=== PATIENT | male | born 1995 | race Caucasian/White ===

== ENCOUNTER 2017-06-30 22:27 | Emergency (ER) | payer OTHER ==
[2017-06-30 22:56] VITALS: BP 123/83; PULSE 75; TEMP 98.5; BMI 23.7
--- NOTE | 2017-06-30 23:56 | PDOC ---
History of Present Illness <Caprice Guo - Last Filed: 07/01/17 01:15> - General History Source: Patient Exam Limitations: No Limitations - History of Present Illness Initial Comments: 07/01/17 01:26 The patient is a 22-year-old male, with a significant past medical history of asthma and migraines, who presents to the ED with a migraine today. The patient states that he smelled gas while at home and was concerned if he had carbon monoxide poisoning. While at home, the patient developed a throbbing migraine which has subsided a bit. He reports one episode of nausea and vomiting, nonbloody, nonbilious that has now resolved. He reports smoking marijuana at 6PM. He denies any fever, chills, or abdominal pain. He denies any shortness of breath or chest pain. <Bea De La Paz - Last Filed: 07/01/17 01:34> - General Chief Complaint: Carbon Monoxide Exposure Stated Complaint: SUBSTANCE ABUSE Time Seen by Provider: 06/30/17 23:55 Past History - Past Medical History Asthma: Yes ( A CHILD) COPD: No - Immunization History Immunization Up to Date: Yes - Suicide/Smoking/Psychosocial Hx Smoking History: Never smoked Have you smoked in the past 12 months: No Information on smoking cessation initiated: No Hx Alcohol Use: No Drug/Substance Use Hx: Yes (Marijuana) Substance Use Type: None <Caprice Guo - Last Filed: 07/01/17 01:15> <Bea De La Paz - Last Filed: 07/01/17 01:34> - Past Medical History Allergies/Adverse Reactions: Allergies Allergy/AdvReac Type Severity Reaction Status Date / Time shellfish derived Allergy Severe Hives Verified 06/30/17 22:50 No Known Drug Allergies Allergy Verified 06/30/17 22:50 Home Medications: Ambulatory Orders NK [No Known Home Medication] 04/07/15 Review of Systems - Review of Systems Able to Perform ROS?: Yes Comments:: 07/01/17 01:32 GENERAL/CONSTITUTIONAL: No fever or chills. No weakness. HEAD, EYES, EARS, NOSE AND THROAT: No change in vision. No ear pain or discharge. No sore throat. CARDIOVASCULAR: No chest pain or shortness of breath. RESPIRATORY: No cough, wheezing, or hemoptysis. SKIN: No rash GASTROINTESTINAL: (+)Nausea, vomiting. No diarrhea or constipation. GENITOURINARY: No dysuria, frequency, or change in urination. MUSCULOSKELETAL: No joint or muscle swelling or pain. No neck or back pain. NEUROLOGIC: (+)migraine. No vertigo, loss of consciousness, or change in strength/sensation. ENDOCRINE: No increased thirst. No abnormal weight change. HEMATOLOGIC/LYMPHATIC: No anemia, easy bleeding, or history of blood clots. ALLERGIC/IMMUNOLOGIC: No hives or skin allergy. <Bea De La Paz - Last Filed: 07/01/17 01:34> *Physical Exam - Vital Signs Last Vital Signs Temp Pulse Resp BP Pulse Ox 98.5 F 75 20 123/83 99 06/30/17 22:50 06/30/17 22:50 06/30/17 22:50 06/30/17 22:50 06/30/17 22:50 <Caprice Guo - Last Filed: 07/01/17 01:15> - Vital Signs Last Vital Signs Temp Pulse Resp BP Pulse Ox 98.5 F 75 20 123/83 99 06/30/17 22:50 06/30/17 22:50 06/30/17 22:50 06/30/17 22:50 06/30/17 22:50 - Physical Exam Comments: 07/01/17 01:33 GENERAL: Awake, alert, and fully oriented, in no acute distress HEAD: No signs of trauma ENT: Auricles normal inspection, hearing grossly normal, nares patent, oropharynx clear EYES: PERRLA, EOMI, sclera anicteric, conjunctiva clear without exudates. Moist mucosa. NECK: Normal ROM, supple, no lymphadenopathy, JVD, or masses LUNGS: Breath sounds equal, clear to auscultation bilaterally. No wheezes, and no crackles HEART: Regular rate and rhythm, normal S1 and S2, no murmurs, rubs or gallops ABDOMEN: Soft, nontender, normoactive bowel sounds. No guarding, no rebound. No masses EXTREMITIES: Normal range of motion, no edema. No clubbing or cyanosis. No cords, erythema, or tenderness NEUROLOGICAL: Cranial nerves II through XII grossly intact. Normal speech, normal gait SKIN: Warm, Dry, normal turgor, no rashes or lesions noted <Bea De La Paz - Last Filed: 07/01/17 01:34> ED Treatment Course - ADDITIONAL ORDERS Additional order review: Laboratory Results 07/01/17 00:48 Anticoagulation Therapy No Result Required. Puncture Site Right brachial ABG pH 7.42 ABG pCO2 at Pt Temp 40.7 ABG pO2 at Pt Temp 89.9 ABG HCO3 25.6 ABG O2 Sat (Measured) 97.5 ABG O2 Content 20.1 ABG Base Excess 1.5 Hank Test Positive Carboxyhemoglobin 1.2 Methemoglobin 0.9 O2 Delivery Device No Result Required. Oxygen Flow Rate No Result Required. Vent Mode No Result Required. Vent Rate No Result Required. Mechanical Rate No Result Required. Pressure Support Vent No Result Required. - Medications Given in the ED: ED Medications Discontinued Medications Generic Name Dose Route Start Last Admin Trade Name Freq PRN Reason Stop Dose Admin Acetaminophen 975 mg 07/01/17 00:16 07/01/17 01:09 Tylenol - PO 07/01/17 00:17 975 mg ONCE ONE Administration <Bea De La Paz - Last Filed: 07/01/17 01:34> Medical Decision Making - Medical Decision Making 07/01/17 00:24 a/p: 22yo male who smelled an abnl gas smell, developed a SMITH and 1 episode of n/ v -currently smith resolved -currently nausea resolved -neuro intact -will check ABG -does smoke marijuana -tylenol -will monitor and most likely d/c 07/01/17 01:15 abg reviewed. carboxyhgb level negative feeling better stable for d/c to home discussed all reasons to return to the ED and need for follow up. <Caprice Guo - Last Filed: 07/01/17 01:15> *DC/Admit/Observation/Transfer - Discharge Dispostion Admit: No - Attestations Physician Attestion: 07/01/17 00:25 I, Dr. Caprice Guo, DO, attest that this document has been prepared under my direction and personally reviewed by me in its entirety. I further attest, that it accurately reflects all work, treatment, procedures and medical decision -making performed by me. <Caprice Guo - Last Filed: 07/01/17 01:15> - Attestations Scribe Attestion: 07/01/17 01:33 Documentation prepared by Bea De La Paz, acting as director medical economics for Caprice Guo DO. <Bea De La Paz - Last Filed: 07/01/17 01:34> Diagnosis at time of Disposition: Headache, Nausea & vomiting, Exposure to gaseous substance - Discharge Dispostion Disposition: HOME Condition at time of disposition: Stable - Referrals Referrals: Memo Claderon MD [Primary Care Provider] - - Patient Instructions Printed Discharge Instructions: DI for Nausea -- Adult, DI for Headache Additional Instructions: Please make an appointment to follow up with your PMD. Please return to the ED with any further complaints. - Post Discharge Activity
[2017-07-01] MEDS ORDERED: ACETAMINOPHEN 325 MG TABLET (FP) PO ONE (00:16)
[2017-07-01 00:57] LABS: ARTERIAL BLD GAS O2 SATURATION 97.5 % (90-98.9); ARTERIAL BLOOD GAS BASE EXCESS 1.5 meq/l (-2-2); ARTERIAL BLOOD GAS PCO2 40.7 mmHg (35-45); ARTERIAL BLOOD GAS PO2 89.9 mmHg (80-100); ARTERIAL BLOOD GAS pH 7.42 (7.35-7.45); CARBOXYHEMOGLOBIN 1.2 gm% (0.5-2.0)
[2017-07-01 00:59] LABS: ALLENS TEST POSITIVE
[2017-07-01] MEDS ORDERED: ACETAMINOPHEN 325 MG TABLET (FP) ONE (01:07)
== END 2017-07-01 01:57 | disposition home or self-care (01) ==
LOC: JER 22:27
DX: T59.891A Toxic effect of other specified gases, fumes and vapors, accidental (unintentional), initial encounter (principal); Y92.038 Other place in apartment as the place of occurrence of the external cause
CPT/HCPCS: 36600; 82375; 82803; 83050; 99282-25

== ENCOUNTER 2020-03-27 14:10 | Emergency (ER) | payer OTHER ==
[2020-03-27] MEDS ORDERED: SODIUM CHLORIDE 1,000 ML IV STA (14:25)
--- NOTE | 2020-03-27 14:27 | PDOC ---
Rapid Medical Evaluation Time Seen by Provider: 03/27/20 14:24 Medical Evaluation: Allergies Allergy/AdvReac Type Severity Reaction Status Date / Time shellfish derived Allergy Severe Hives Verified 06/30/17 22:50 No Known Drug Allergies Allergy Verified 06/30/17 22:50 03/27/20 14:26 I performed a brief in-person evaluation of this patient. RLQ abd pain x 5 days. Getting worse. Chills, no documented fevers. Pertinent physical exam findings: + RLQ abd pain to palpation, nontoxic I have ordered the following: saline lock, labs, 1L of NS, imaging deferred to treating provider's discretion Patient to proceed to ED for further evaluation. Discharge Disposition - Diagnosis Right lower quadrant abdominal pain - Referrals - Patient Instructions - Post Discharge Activity
[2020-03-27 14:32] VITALS: BMI 24.4
--- OUTSIDE RECORDS SUMMARY | 2020-03-27 14:52 | XMS ---
:1995 Author Organization [facility] Support Name Relationship Address Phone DOMENICO Unavailable Unavailable Unavailable MARTIN CORREA FATHER [address] [phone] [place] [address] Re-disclosure Warning The records that you are about to access may contain information from federally- assisted alcohol or drug abuse programs. If such information is present, then the following federally mandated warning applies: This information has been disclosed to you from records protected by federal confidentiality rules (42 CFR part 2). The federal rules prohibit you from making any further disclosure of this information unless further disclosure is expressly permitted by the written consent of the person to whom it pertains or as otherwise permitted by 42 CFR part 2. A general authorization for the release of medical or other information is NOT sufficient for this purpose. The Federal rules restrict any use of the information to criminally investigate or prosecute any alcohol or drug abuse patient.The records that you are about to access may contain highly sensitive health information, the redisclosure of which is protected by Article 27-F of the [facility] Public Health law. If you continue you may haveaccess to information: Regarding HIV / AIDS; Provided by facilities licensed or operated by the [facility] Office of Mental Health; or Provided by the [facility] Office for People With Developmental Disabilities. If such information is present, then the following [facility] mandated warning applies: This information has been disclosed to you from confidential records which are protected by state law. State law prohibits you from making any further disclosure of this information without the specific written consent of the person to whom it pertains, or as otherwise permitted by law. Any unauthorized further disclosure in violation of state law may result in a fine or residential sentence or both. A general authorization for the release of medical or other information is NOT sufficient authorization for further disclosure. Insurance Providers Payer name Policy type Policy ID Covered Covered constitution party's Policy P petrona / Coverage constitution party ID relationship to [employer] ormation type myers [employer] [id number] SP [id number] ESSENTIAL PLAN 1 2 Results ID Date Data Source [id number] 11/13/2019 12:00:00 AM EDT [place] Name Value Range Interpretation Code Description Data Sara rce(s) Supporting Document(s ) [facility] CHERI[facility]- Imp This lab was ordered by [facility] and reported by [employer] Procedure
[2020-03-27 16:02] LABS: BASO % 0.7 % (0-2.0); EOS % 2.2 % (0-4.5); HEMATOCRIT 44.6 % (35.4-49); HEMOGLOBIN 15.1 GM/dL (11.7-16.9); LYMPH % 25.9 % (8-40); MCH 29.3 pg (25.7-33.7); MCHC 33.9 g/dl (32.0-35.9); MEAN CELL VOLUME 86.4 fl (80-96); NEUT % 64.2 % (42.8-82.8); PLATELET COUNT 263 K/MM3 (134-434); RBC 5.16 M/mm3 (4.00-5.60); RDW 13.4 % (11.9-15.9); WHITE BLOOD COUNT 6.1 K/mm3 (4.0-10.0)
--- NOTE | 2020-03-27 16:19 | PDOC ---
History of Present Illness <Silvia Phipps - Last Filed: 03/27/20 16:22> - General History Source: Patient Exam Limitations: No Limitations - History of Present Illness Initial Comments: 03/27/20 16:16David is a 24-year-old male no significant past medical history presenting to the ED with 5 days of right lower quadrant abdominal pain. Pa mani states the pain started periumbilical and then traveled to his right lower quadrant. Patient had a few episodes of nonbloody diarrhea. Patient denies fever but does endorse chills. Last meal was yesterday. Pt otherwise denies: fevers, syncope, lightheadedness, dizziness, headaches, neck pain, chest pain, shortness of breath, palpitations, back pain, nausea, vomiting, constipation. <Titi Azar - Last Filed: 03/27/20 20:31> - General Chief Complaint: Pain Stated Complaint: LOWER ABD PAIN Time Seen by Provider: 03/27/20 14:24 Past History <Silvia Phipps - Last Filed: 03/27/20 16:22> - Medical History Asthma: Yes ( A CHILD) COPD: No - Immunization History Immunization Up to Date: Yes - Psycho-Social/Smoking History Smoking History: Never smoked Have you smoked in the past 12 months: No <Titi Azar - Last Filed: 03/27/20 20:31> - Medical History Allergies/Adverse Reactions: Allergies Allergy/AdvReac Type Severity Reaction Status Date / Time shellfish derived Allergy Severe Hives Verified 03/27/20 14:32 No Known Drug Allergies Allergy Verified 03/27/20 14:32 Home Medications: Ambulatory Orders NK [No Known Home Medication] 04/07/15 *Physical Exam - Vital Signs Last Vital Signs Temp Pulse Resp BP Pulse Ox 98.7 F 70 18 123/67 100 03/27/20 14:30 03/27/20 14:30 03/27/20 14:30 03/27/20 14:30 03/27/20 14:30 <Silvia Phipps - Last Filed: 03/27/20 16:22> - Vital Signs Last Vital Signs Temp Pulse Resp BP Pulse Ox 98.7 F 70 18 123/67 100 03/27/20 14:30 03/27/20 14:30 03/27/20 14:30 03/27/20 14:30 03/27/20 14:30 - Physical Exam 03/27/20 16:17 Gen: AAOx 3, no acute distress, comfortable, no signs of respiratory distress HENT: atraumatic, normocephalic with no laceration or contusion. Nasal mucosa without erythema. Oropharynx without erythema or exudates. Mucous membranes moist. EYES: PERRL, EOM intact, conjunctiva pink NECK: supple; trachea midline; no JVD, no lymphadenopathy, or thyromegaly CV: RRR no murmurs, gallops, or rubs. CHEST: CTA b/l no wheezing, rales or rhonchi ABD: +BS/ND. TTPin RLQ without rebound or guarding; rest of abdomen soft, no rebound, no guarding EXTREMITY: no cyanosis or erythema. 2+ dorsalis pedis, posterior tibial, and radial pulse. No pedal edema; no calf swelling or tenderness SKIN: no rash, warm and dry, no diaphoresis HEME: no purpura or ecchymosis NEURO: normal speech, CN II-XII intact, sensation intact, normal gait, no cerebellar deficits MS: 5/5 strength in all extremities, FROM intact in all extremities. <Titi Azar - Last Filed: 03/27/20 20:31> ED Treatment Course - LABORATORY CBC & Chemistry Diagram: 03/27/20 15:45 03/27/20 15:45 - ADDITIONAL ORDERS Additional order review: 03/27/20 15:45 RBC 5.16 MCV 86.4 MCHC 33.9 RDW 13.4 MPV 9.0 Neutrophils % 64.2 Lymphocytes % 25.9 Monocytes % 7.0 Eosinophils % 2.2 Basophils % 0.7 - Medications Given in the ED: ED Medications Discontinued Medications Generic Name Dose Route Start Last Admin Trade Name Freq PRN Reason Stop Dose Admin Sodium Chloride 1,000 mls @ 1,000 mls/hr 03/27/20 14:25 03/27/20 15:45 Normal Saline - IV 03/27/20 15:24 1,000 mls/hr ASDIR STA Administration <Silvia Phipps - Last Filed: 03/27/20 16:22> - LABORATORY CBC & Chemistry Diagram: 03/27/20 15:45 03/27/20 15:45 - ADDITIONAL ORDERS Additional order review: 03/27/20 15:45 RBC 5.16 MCV 86.4 MCHC 33.9 RDW 13.4 MPV 9.0 Neutrophils % 64.2 Lymphocytes % 25.9 Monocytes % 7.0 Eosinophils % 2.2 Basophils % 0.7 - Medications Given in the ED: ED Medications Discontinued Medications Generic Name Dose Route Start Last Admin Trade Name Rima PRN Reason Stop Dose Admin Sodium Chloride 1,000 mls @ 1,000 mls/hr 03/27/20 14:25 03/27/20 15:45 Normal Saline - IV 03/27/20 15:24 1,000 mls/hr ASDIR STA Administration <Titi zAar - Last Filed: 03/27/20 20:31> Medical Decision Making - Medical Decision Making The patient was seen and evaluated in conjunction with midlevel provider under my direct supervision, ancillary studies were reviewed. I agree with the plan as outlined withKENIA Azar. HPI, workup/dispo as outlined. VS reviewed, wnl. Basic labs, electrolytes, CT abdomen pelvis to evaluate for appendicitis, IV fluids, pain control reassess 03/27/20 16:22 <Silvia Phipps - Last Filed: 03/27/20 16:22> - Medical Decision Making 03/27/20 16:18 24-year-old male no severe past medical history with right lower quadrant pain Vital signs stable Labs ordered by E Patient is currently receiving 1 L of normal saline Will obtain CT abdomen pelvis with contrast to rule out appendicitis Labs White blood cell count 6.1 H&H 15.1/44.6 Chemistry within normal limits except mildly elevated BUN of 18.[address] abdomen and pelvis negative for any acute pathology. Patient reassured and I expressed to patient the need to follow-up with both GI and his PCP. Pt appears well and is safe and stable for discharge with strict return precautions including signs and symptoms requring immediate return to the ED Supportive care instructions explained and given to pt. Reasons to return emergently to ER explained and given. Importance of follow up with PMD and other specialists as indicated stressed to pt. Pt verbalized understanding of instructions. Pt to follow up with PMD in 2 days. <Titi Azar - Last Filed: 03/27/20 20:31> Discharge <Silvia Phipps - Last Filed: 03/27/20 16:22> - Discharge Information Problems reviewed: Yes <Jonathan Azarew - Last Filed: 03/27/20 20:31> - Discharge Information Clinical Impression/Diagnosis: Right lower quadrant abdominal pain Condition: Stable Disposition: HOME - Follow up/Referral Referrals: Memo Calderon MD [Primary Care Provider] - Carl King DO [Staff Physician] - - Patient Discharge Instructions Patient Printed Discharge Instructions: DI for Abdominal Pain-Adult Additional Instructions: YOU CAN TAKE OVER THE COUNTER MEDS FOR PAIN AND GI DISCOMFORT - Post Discharge Activity
[2020-03-27 16:26] LABS: URINE APPEARANCE CLEAR; URINE BILIRUBIN NEGATIVE (NEGATIVE); URINE COLOR YELLOW; URINE GLUCOSE (UA) NEGATIVE (NEGATIVE); URINE KETONE TRACE (NEGATIVE); URINE LEUK ESTERASE NEGATIVE (NEGATIVE); URINE NITRITE NEGATIVE (NEGATIVE); URINE PROTEIN NEGATIVE (NEGATIVE)
[2020-03-27 16:38] LABS: ALBUMIN 4.1 g/dl (3.4-5.0); BILIRUBIN,TOTAL 0.9 mg/dL (0.2-1); BLOOD UREA NITROGEN 18.7 mg/dL (7-18); CREATININE 0.8 mg/dL (0.55-1.3); POTASSIUM 4.4 mmol/L (3.5-5.1); TOT PROT 7.4 g/dl (6.4-8.2)
[2020-03-27 21:44] VITALS: BP 110/68; PULSE 86; TEMP 98.6
== END 2020-03-27 20:45 | disposition home or self-care (01) ==
LOC: JER 14:10
PROC: 3E0337Z Introduction of Electrolytic and Water Balance Substance into Peripheral Vein, Percutaneous Approach (ICD-10-PCS; principal; 2020-03-27)
DX: R10.31 Right lower quadrant pain (principal)
CPT/HCPCS: 36415; 74177-TC; 80053; 81003; 83690; 85025; 87086; 99285-25; Q9967

== ENCOUNTER 2021-05-09 10:25 | Emergency (ER) | payer OTHER ==
[2021-05-09 10:45] VITALS: BP 122/54; PULSE 65; TEMP 97.8; BMI 22.3
== END 2021-05-09 12:00 | disposition home or self-care (01) ==
LOC: JERFT 10:25
DX: M79.672 Pain in left foot (principal); W01.0XXA Fall on same level from slipping, tripping and stumbling without subsequent striking against object, initial encounter
CPT/HCPCS: 73630-TC-LT; 99283-25

== ENCOUNTER 2021-08-19 15:14 | Emergency (ER) | payer OTHER ==
[2021-08-19 15:43] VITALS: BP 108/62; PULSE 73; TEMP 98; BMI 22.6
== END 2021-08-19 17:55 | disposition home or self-care (01) ==
LOC: JERFT 15:14
DX: B35.0 Tinea barbae and tinea capitis (principal)
CPT/HCPCS: 99281-25

== ENCOUNTER 2021-09-04 21:15 | Emergency (ER) | payer OTHER ==
[2021-09-04 21:27] VITALS: BP 106/68; PULSE 83; TEMP 98.1; BMI 22.3
== END 2021-09-05 00:33 | disposition home or self-care (01) ==
LOC: JERFT 21:15 → JER 21:15
DX: S83.92XA Sprain of unspecified site of left knee, initial encounter (principal); Y93.75 Activity, martial arts
CPT/HCPCS: 73564-TC-LT-FY; 99283-25

== ENCOUNTER 2022-01-12 00:25 | Emergency (ER) | payer OTHER ==
[2022-01-12 00:43] VITALS: BP 125/81; PULSE 79; RESP 20; TEMP 98; BMI 23.3
[2022-01-12] MEDS ORDERED: KETOROLAC TROMETHAMINE 30 MG/1 ML VIAL IM ONE (01:52)
[2022-01-12] MEDS ORDERED: KETOROLAC TROMETHAMINE 30 MG/1 ML VIAL ONE (01:55)
[2022-01-12] MEDS ORDERED: DIPHTH,PERTUSS(ACELL),TET 0.5 ML DISP.SYRIN IM ONE ×2 (01:55→02:12)
== END 2022-01-12 02:42 | disposition home or self-care (01) ==
LOC: JER 00:25
PROC: 3E0234Z Introduction of Serum, Toxoid and Vaccine into Muscle, Percutaneous Approach (ICD-10-PCS; principal; 2022-01-12)
PROC: 3E023GC Introduction of Other Therapeutic Substance into Muscle, Percutaneous Approach (ICD-10-PCS; principal; 2022-01-12)
DX: S99.921A Unspecified injury of right foot, initial encounter (principal); Y99.8 Other external cause status
CPT/HCPCS: 73630-TC-RT-FY; 90471; 90715; 96372; 99284-25

== ENCOUNTER 2023-03-21 16:43 | Emergency (ER) | payer OTHER ==
[2023-03-21 17:14] VITALS: BP 110/63; PULSE 78; RESP 18; TEMP 98.2; BMI 22.6
[2023-03-21] MEDS ORDERED: BACITRACIN ZINC 15 GM TUBE TOPICAL OINTMENT TP ONE (18:25)
[2023-03-21] MEDS ORDERED: BACITRACIN ZINC 15 GM TUBE TOPICAL OINTMENT ONE (19:04)
== END 2023-03-21 20:02 | disposition home or self-care (01) ==
LOC: JERFT 16:43
DX: S00.83XA Contusion of other part of head, initial encounter (principal); R51.9 Headache, unspecified; R22.0 Localized swelling, mass and lump, head; S00.33XA Contusion of nose, initial encounter; S00.81XA Abrasion of other part of head, initial encounter; S80.211A Abrasion, right knee, initial encounter; S50.811A Abrasion of right forearm, initial encounter; M25.552 Pain in left hip; H05.221 Edema of right orbit; H02.841 Edema of right upper eyelid; H11.31 Conjunctival hemorrhage, right eye; Y04.8XXA Assault by other bodily force, initial encounter
CPT/HCPCS: 70450-TC; 70486-TC; 99284-25

== ENCOUNTER 2023-11-14 15:02 | Emergency (ER) | payer OTHER ==
[2023-11-14 15:18] VITALS: BP 135/76; PULSE 98; RESP 18; TEMP 98.9; BMI 23.0
[2023-11-14] MEDS ORDERED: DIPHTH,PERTUSS(ACELL),TET 0.5 ML DISP.SYRIN IM ONE ×2 (15:48→15:54)
[2023-11-14] MEDS: DIPHTH,PERTUSS(ACELL),TET 0.5 ML DISP.SYRIN IM ONE (15:53)
== END 2023-11-14 17:36 | disposition home or self-care (01) ==
LOC: JER 15:02
PROC: 3E0234Z Introduction of Serum, Toxoid and Vaccine into Muscle, Percutaneous Approach (ICD-10-PCS; principal; 2023-11-14)
DX: S02.2XXA Fracture of nasal bones, initial encounter for closed fracture (principal); S00.81XA Abrasion of other part of head, initial encounter; R42 Dizziness and giddiness; R51.9 Headache, unspecified; Y04.8XXA Assault by other bodily force, initial encounter; Z23 Encounter for immunization
CPT/HCPCS: 70450-TC; 70486-TC; 72125-TC; 73070-TC-LT-FY; 90471; 90715; 99284-25